=== PATIENT | female | born 1980 | race Caucasian/White ===

== ENCOUNTER → 2016-12-19 15:59 | Outpatient (CLI) | payer MEDICAID | END | disposition home or self-care (01) | LOC: D.MAMMO 10:00 | DX: N64.4 Mastodynia (principal) ==

== ENCOUNTER 2019-11-08 08:15 | Day surgery (SDC) | payer BC, OTHER ==
[~2019-11-08] VITALS: Ht 154.9 cm; Wt 120.7 kg
--- NOTE | ~2019-11-08 | OP ---
PATIENT NAME: EDD CHURCHILL MEDICAL RECORD: [id number] :78 LOCATION:D.OPS ADMISSION DATE: SURGEON: PAKO OSORIO MD DATE OF OPERATION: 11/08/2019 PREOPERATIVE DIAGNOSES: 1. Mixed internal and external bleeding hemorrhoids. 2. Hypertension. 3. Morbid obesity with a BMI of 50. POSTOPERATIVE DIAGNOSES: 1. Mixed internal and external bleeding hemorrhoids. 2. Hypertension. 3. Morbid obesity with a BMI of 50. PROCEDURE: PPH stapled hemorrhoidectomy. SURGEON: Pako Osorio MD REPORT OF PROCEDURE: The patient was placed in the jackknife prone position and the perianal region was prepped and draped in sterile fashion. An anoscope was inserted and a 360 degree inspection was performed. The patient had very large mixed internal and external hemorrhoids. There was more of an external component today. The PPH anoscope was then inserted and sutured down on all 4 sides with interrupted 3-0 silks. A 2-0 Prolene was used to make a pursestring in the distal rectum. Once we had the pursestring and a counter stitch in place, then the PPH stapler was inserted. As we fired the stapler, we removed a large core of rectal tissue. As we inspected the staple line, it appeared to be intact, but there were 2 areas of bleeding, one was a brisk arterial bleed, which was oversewn with a 2-0 chromic. The other was oversewn with 2-0 chromic. This discontinued any bleeding from the staple lines. We irrigated out the rectum with normal saline. At this point, a piece of Gelfoam with Americaine was placed into the rectum and the anoscope was removed. COMPLICATIONS: None. CONDITION: Stable. ANESTHESIA: General endotracheal. BLOOD LOSS: 30 mL. TRANSINT:[id number] Voice Confirmation ID: [id number] DOCUMENT ID: [id number] PAKO OSORIO MD CC: [id number] DICTATION DATE: 11/08/19 1327 DIRECTOR OF OFFICIATING: 11/08/191932 [facility] 11/08/19 [facility] [address] [place] [address]
[~2019-11-08 08:15] MED LIST: BUPROPION HCL100 M1 PO; CELEXA20 MG PO; HYDROCORTISONE30 G9 TOPICAL; LISINOPRIL10 MG PO; STOOL SOFTENER100 M1 PO
[2019-11-08 08:58] LABS: CALC OSMOLALITY 272 mosm/kg (275-300); CARBON DIOXIDE 25.7 mmol/L (21.0-32.0); CHLORIDE - SERUM 105 mmol/L (98-107); CREATININE - SERUM 0.8 mg/dL (0.6-1.3); GLUCOSE 95 mg/dL (74-106); POTASSIUM - SERUM 3.7 mmol/L (3.5-5.1); SODIUM 137 mmol/L (136-145); UREA NITROGEN 9 mg/dL (7-18); eGFR NON AFRICAN AMERICAN 84 mL/min (90-120)
[2019-11-08 09:17] LABS: HCG SERUM NEGATIVE (NEGATIVE)
[2019-11-08 09:26] VITALS: BP 133/85; Ht 154.9 cm; Wt 120.7 kg
[2019-11-08 09:31] LABS: BASOPHILS 0.3 % (0-2); EOSINOPHILS 0.8 % (0-7); HEMATOCRIT 41.4 % (36.0-48.0); HEMOGLOBIN 13.1 g/dL (12-16); IMMATURE GRANULOCYTES 0.2 % (0-5); LYMPHOCYTES 21.4 % (15-50); MCH 26.5 pg (26.0-34.0); MCHC 31.6 g/dL (31.0-37.0); MCV 83.6 fL (80.0-100.0); MEAN PLATELET VOLUME 10.4 fL (7.4-10.4); MONOCYTES 8.6 % (2-11); NEUTROPHILS 68.7 % (40-80); PLATELET COUNT 250 10x3/uL (130-400); RBC 4.95 10x6/uL (4.00-5.40); WBC 6.3 10x3/uL (4.8-10.8)
[2019-11-08] MEDS ORDERED: HYDROCODON-ACE1 EA10 PO (13:22)
--- NOTE | 2019-11-08 18:19 | NUR ---
1543-REVIEWED POST OPERATIVE INSTRUCTIONS AND TO CALL NEXT WK FOR FOLLOW UP APPOINTMENT.VERBALIZED UNDERSTANDING. ESCORTED OUT VIA W/C WITH MOTHER TO DRIVE HOME
--- NOTE | 2019-11-08 18:19 | NUR ---
1530-REMOVED IV WITH CATH INTACT,DISPOSED INTO SHARPS,COVERED WITH GUAZE,SECURED WITH MEDIPORE TAPE.
== END 2019-11-08 15:43 | disposition home or self-care (01) ==
LOC: D.OPS 08:15
PROVIDERS: Anesthesiology; ATTEND Surgery
DX: K64.4 Residual hemorrhoidal skin tags (principal); K64.8 Other hemorrhoids; I10 Essential (primary) hypertension; E66.01 Morbid (severe) obesity due to excess calories; Z68.43 Body mass index [BMI] 50.0-59.9, adult

== ENCOUNTER 2020-03-10 07:14 | Day surgery (SDC) | payer BC, OTHER ==
[~2020-03-10] VITALS: Ht 154.9 cm; Wt 108.0 kg
--- NOTE | ~2020-03-10 | OP ---
PATIENT NAME: EDD CHURCHILL MEDICAL RECORD: [id number] :78 LOCATION:D.OPS ADMISSION DATE: SURGEON: PAKO OSORIO MD DATE OF OPERATION: 03/10/2020 PREOPERATIVE DIAGNOSES: 1. Hematochezia. 2. Hemorrhoids, status post BPH. 3. Anemia of acute blood loss. 4. Morbid obesity. POSTOPERATIVE DIAGNOSES: 1. Hematochezia. 2. Hemorrhoids, status post BPH. 3. Anemia of acute blood loss. 4. Morbid obesity. PROCEDURE: 1. Colonoscopy. 2. Hemorrhoidectomy times 2. SURGEON: Pako Osorio MD REPORT OF PROCEDURE: The patient was placed in the left lateral decubitus position and an Olympus endoscope was advanced through the patient's anus. We were able to pass the scope all the way through to the cecum. The patient had a good prep. I could see the patient's appendiceal orifice as we pulled back. I never was able to fully visualize the patient's terminal ileum, but I could see an area around the corner where there was a spillage of bilious fluid. I think just due to the angulation, I was not able to see the ileocecal valve. As I continued back, I did not see any masses or lesions. The patient had alcala diverticulosis, but this was mainly in the patient's left colon and sigmoid colon. As we pulled back to the rectum, a retroflex view showed that there was an area of mass present at the PPH staple line, which was very friable. This mass was bi-lobulated and appeared to be most consistent with granulation type tissue. At this point, the insufflation and the scope were removed. The patient was placed in lithotomy position and the perianal region was prepped and draped in sterile fashion. An anoscope was inserted and we did a 360 degree inspection, this area of inflamed tissue was in the patient's right upper quadrant of the anus. As I tried to manipulate this tissue, it was very friable and actually just came off. There was some brisk bleeding associated with this. I went ahead and oversewed these 2 sites with [id number] 2-0 chromics. This discontinued any bleeding from there. The patient did have 2 large external hemorrhoids that were present. I did not see any evidence of any internal hemorrhoidal tissue on the scope or during our exam. The external hemorrhoids were present on the posterior aspect of the anus. The one on the right side of the anus was excised by placing a 2-0 chromic at the base of the hemorrhoid and excising the hemorrhoid down to the sphincter muscles using electrocautery. With this excised, we treated the area with electrocautery to stop any bleeding and then used the previously placed stitch to run in a locking fashion out of the rectum and anus to the anoderm. There were no signs of any bleeding at the conclusion of this hemorrhoidal resection. There was another hemorrhoid present more on the left posterior side. Again, a 2-0 chromic was placed at the base of this and the hemorrhoid was excised using electrocautery all the way down to the sphincter muscles. This hemorrhoid extended laterally OPERATIVE REPORT [id number] EDD CHURCHILL and we were able to undermine the tissue overlying this hemorrhoid and excise it as well. With the hemorrhoid completely excised, we treated the area with electrocautery to stop any bleeding that was present. We then used the previously placed 2-0 chromic to run out of the anal tissue onto the anal skin. At the conclusion of this, we again saw no evidence of any active bleeding. We irrigated out the wounds with normal saline. The anal region was then packed with a piece of Gelfoam dipped in Americaine. COMPLICATIONS: None. CONDITION: Stable. ANESTHESIA: General endotracheal. BLOOD LOSS: 200 mL. TRANSINT:[id number] Voice Confirmation ID: [id number] DOCUMENT ID: [id number] PAKO OSORIO MD CC: [id number] DICTATION DATE: 03/10/20 1556 ATMOSPHERIC PHYSICIST: 03/11/20 0027 [facility] 03/10/20 [facility] [address] [id number]
[~2020-03-10 07:14] MED LIST changes: +CATAPRES0.1 MG; +HYDROCODON-ACE1 EA10 PO; +PROZAC20 MG PO
[2020-03-10 07:31] LABS: BASOPHILS 0.2 % (0-2); EOSINOPHILS 1.2 % (0-7); HEMATOCRIT 35.1 % (36.0-48.0); HEMOGLOBIN 10.7 g/dL (12-16); LYMPHOCYTES 22.2 % (15-50); MCH 25.4 pg (26.0-34.0); MCHC 30.5 g/dL (31.0-37.0); MCV 83.4 fL (80.0-100.0); MONOCYTES 9.9 % (2-11); NEUTROPHILS 66.5 % (40-80); PLATELET COUNT 203 10x3/uL (130-400); RBC 4.21 10x6/uL (4.00-5.40); WBC 5.1 10x3/uL (4.8-10.8)
[2020-03-10 07:55] LABS: CALC OSMOLALITY 270 mosm/kg (275-300); CALCIUM 8.8 mg/dL (8.5-10.1); CARBON DIOXIDE 24.6 mmol/L (21.0-32.0); CHLORIDE - SERUM 104 mmol/L (98-107); CREATININE - SERUM 0.8 mg/dL (0.6-1.3); GLUCOSE 89 mg/dL (74-106); SODIUM 137 mmol/L (136-145); UREA NITROGEN 7 mg/dL (7-18); eGFR NON AFRICAN AMERICAN 84 mL/min (90-120)
[2020-03-10 08:05] LABS: HCG SERUM NEGATIVE (NEGATIVE)
[2020-03-10 08:07] VITALS: BP 127/68; Ht 154.9 cm; Wt 108.0 kg
[2020-03-10] MEDS ORDERED: HYDROCODON-ACE1 EA10 PO (12:22)
== END 2020-03-10 14:00 | disposition home or self-care (01) ==
LOC: D.OPS 07:14 → D.PAN 09:45 → D.OPS 09:45
PROVIDERS: Anesthesiology; ATTEND Surgery
DX: K92.1 Melena (principal); K64.9 Unspecified hemorrhoids; D62 Acute posthemorrhagic anemia; E66.01 Morbid (severe) obesity due to excess calories; I10 Essential (primary) hypertension